=== PATIENT | female | born 1965 | race Caucasian/White ===

== ENCOUNTER 2017-12-02 13:47 | Observation (INO) | payer OTHER ==
[~2017-12-02] VITALS: Ht 165.1 cm; Wt 83.1 kg
[2017-12-02 14:30] LABS: BASOPHILS # (AUTO) 0.04 x10^3/uL (0-0.1); BASOPHILS % (AUTO) 1 % (0-1); EOSINOPHILS # (AUTO) 0.24 x10^3/uL (0-0.4); EOSINOPHILS % (AUTO) 4 % (1-7); LYMPHOCYTES # (AUTO) 1.78 x10^3/uL (1-3.4); LYMPHOCYTES % (AUTO) 31 % (22-44); MD NO; MEAN CORPUSCULAR HEMOGLOBIN 29.7 pg (27.0-34.8); MEAN CORPUSCULAR HGB CONC 33.6 g/dL (32.4-35.8); MEAN CORPUSCULAR VOLUME 88.3 fL (80-100); MEAN PLATELET VOLUME 8.7 fL (7.4-10.4); MONOCYTES # (AUTO) 0.51 x10^3/uL (0.2-0.8); MONOCYTES % (AUTO) 9 % (2-9); NEUTROPHILS # (AUTO) 3.17 x10^3/uL (1.8-6.8); NEUTROPHILS % (AUTO) 55 % (42-75); PLATELET COUNT 270 x10^3/uL (130-400); RED BLOOD COUNT 4.51 x10^6/uL (3.82-5.3); RED CELL DISTRIBUTION WIDTH 14.7 % (9.6-15.2)
[2017-12-02] MEDS ORDERED: ASPIRIN 81 MG TABLET CHEW PO ONE (14:30)
[2017-12-02 14:34] LABS: ANION GAP 7 mmol/L (5-15); CALCIUM 9.3 mg/dL (8.5-10.1); CHLORIDE 107 mmol/L (98-107); CREATININE 0.92 mg/dL (0.55-1.02)
[2017-12-02 14:38] LABS: TROPONIN I < 0.015 ng/mL (0.000-0.045)
[2017-12-02] MEDS ORDERED: ASPIRIN 81 MG TABLET CHEW ONE (15:06)
[2017-12-02] MEDS ORDERED: DICL25TA PO (16:11)
[2017-12-02] MEDS ORDERED: ALBU90AE INH (16:11)
[2017-12-02] MEDS ORDERED: DOCUSATE 100 MG CAPSULE PO PRN (16:30)
[2017-12-02] MEDS ORDERED: ENOXAPARIN 40 MG/0.4 ML SQ SCH (16:30)
[2017-12-02] MEDS ORDERED: ONDANSETRON 2MG/ML, 2ML IVPush PRN (16:30)
[2017-12-02] MEDS ORDERED: POLYETHYLENE GLYCOL 17 GM PACKET PO PRN (16:30)
[2017-12-02] MEDS ORDERED: ACETAMINOPHEN 325 MG TABLET PO PRN (16:30)
[2017-12-02] MEDS ORDERED: ENALAPRILAT 1.25 MG/ML, 2ML IVPush PRN (16:30)
[2017-12-02] MEDS ORDERED: BISACODYL 10 MG SUPP PR PRN (16:30)
[2017-12-02] MEDS ORDERED: ASPI-496 PO (16:40)
[2017-12-02] MEDS ORDERED: ALBUTEROL SULFATE INH PRN (17:00)
[2017-12-02 17:09] VITALS: BP 151/84
[2017-12-02] MEDS ORDERED: ENOXAPARIN 40 MG/0.4 ML ONE (17:13)
[2017-12-02] MEDS ORDERED: FISH400C2 PO (17:21)
[2017-12-02] MEDS ORDERED: [UNRECOGNIZED DRUG - OTHER] PO (17:21)
[2017-12-02] MEDS ORDERED: CHOL100011 PO (17:21)
[2017-12-02] MEDS ORDERED: CA C1TAB62 PO (17:21)
[2017-12-02 18:37] VITALS: BP 114/72
[2017-12-02 19:29] LABS: TROPONIN I < 0.015 ng/mL (0.000-0.045)
[2017-12-02] MEDS: SODIUM CHLORIDE FLUSH 10ML SYR IVF SCH (19:49)
[2017-12-03 01:19] VITALS: BP 107/72
[2017-12-03 01:42] LABS: TROPONIN I < 0.015 ng/mL (0.000-0.045)
[2017-12-03 06:22] LABS: CHOL/HDL RATIO 4.1; LDL/HDL RATIO 2.5 (0.5-3.0); THYROID STIMULATING HORMONE 4.18 mIU/L (0.358-3.740)
[2017-12-03 07:11] VITALS: BP 114/74
[2017-12-03] MEDS ORDERED: REGADENOSON 0.4 MG/5 ML SYRINGE ONE (07:15)
[2017-12-03] MEDS ORDERED: CHOLECALCIFEROL 1,000 UNIT TABLET PO SCH (10:00)
[2017-12-03] MEDS: SODIUM CHLORIDE FLUSH 10ML SYR IVF SCH (10:00)
[2017-12-03] MEDS ORDERED: TEMPLATE NON-FORMULARY MED. (Ca Carb & Gluc/Mag Ox & Gluc** (Calcium Magnesium Caplet**) 1 PO SCH (10:00)
[2017-12-03] MEDS ORDERED: ASPIRIN 81 MG TABLET EC PO SCH (10:00)
[2017-12-03 13:17] VITALS: BP 117/77
[2017-12-03] MEDS ORDERED: ACET-1600 PO (13:18)
== END 2017-12-03 14:00 | disposition home or self-care (01) ==
LOC: ED 16:02 → EDIP 16:03 → ED 16:31 → 5SO 17:08 → DCLOUNGE 12-03 13:55
PROVIDERS: ADMIT Internal Medicine; ATTEND Internal Medicine
DX: R07.9 Chest pain, unspecified (principal); R79.89 Other specified abnormal findings of blood chemistry; R00.2 Palpitations; M19.90 Unspecified osteoarthritis, unspecified site; Z82.49 Family history of ischemic heart disease and other diseases of the circulatory system; J45.909 Unspecified asthma, uncomplicated; Z83.3 Family history of diabetes mellitus; Z87.891 Personal history of nicotine dependence; M94.0 Chondrocostal junction syndrome [Tietze]
CPT/HCPCS: 36415; 71046; 78452; 80048; 80061; 82040; 83735; 83880; 84443; 84484; 85025; 85379; 93005; 93017; 96372; 99285; A9502; C9898; G0378; J1650; J2785

== ENCOUNTER → 2018-01-14 | Outpatient (CLI) | payer OTHER ==
[~2018-01-14] MED LIST: ACET-1600 PO; ALBU90AE INH; ASPI-496 PO; CA C1TAB62 PO; CHOL100011 PO; DICL25TA PO; FISH400C2 PO; [UNRECOGNIZED DRUG - OTHER] PO
== END | disposition home or self-care (01) ==
LOC: CFH 14:48
PROVIDERS: ATTEND Specialist
DX: Z12.31 Encounter for screening mammogram for malignant neoplasm of breast (principal)
CPT/HCPCS: 77063; 77067